=== PATIENT | male | born 1965 | race Caucasian/White ===

== ENCOUNTER 2024-04-29 15:15 | Outpatient (REF) | payer OTHER, SELFPAY ==
[2024-04-29 16:37] LABS: Alanine Aminotransferase 25 U/L (0-40); Albumin Level 4.4 g/dL (3.5-5.0); Alkaline Phosphatase 59 U/L (39-117); Anion Gap 16 (12-20); Aspartate Amino Transferase 25 U/L (5-37); Bilirubin Total 0.4 mg/dL (0.0-1.0); Blood Urea Nitrogen 17 mg/dL (9-16); Calcium 9.2 mg/dL (8.4-10.2); Carbon Dioxide 22 mmol/L (22-29); Chloride 111 mmol/L (96-108); Cholesterol 193 mg/dL (<200); Estimated Glomerular Filt Rate > 60; Glucose Random 81 mg/dL (60-115); HDL Cholesterol 63 mg/dL (>40); LDL Cholesterol Calculated 121 mg/dL (<100); Potassium 3.6 mmol/L (3.3-5.1); Sodium 145 mmol/L (135-145); Triglycerides 48 mg/dL (<150)
[2024-04-30 09:02] LABS: HIV AB/AG Nonreactive (Nonreactive); HIV Num 1 0.05 S/CO (0.00-0.99); ~HepC Num1 0.12 S/CO (0.00-0.79); ~Hepatitis C Antibody Nonreactive (Nonreactive)
== END 2024-04-29 15:16 | disposition home or self-care (01) ==
LOC: HO.HHCL 15:15
PROVIDERS: Visit Provider Nurse Practitioner Family
DX: Z00.00 Encounter for general adult medical examination without abnormal findings (principal)
CPT/HCPCS: 36415; 80053; 80061; 86803; 87389

== ENCOUNTER 2025-04-29 11:01 | Outpatient (REF) | payer OTHER, SELFPAY ==
--- OUTSIDE RECORDS SUMMARY | 2025-04-29 10:30 | XMS_ITS | Encounter Summary ---
Author Organization [employer] Address [address] [place] [address] [address] [place] [address] Care Team Providers Care Solar Installation Foreman Name Role Phone Alexandra Munoz Primary Care Provider [phone] Encounter Details Date Type Department Care Team ([facility] st Contact Info) Description 04/29/2025 10:30 AM EDT Office Visit [facility] [address] [place], [place] [phone] Alexandra Munoz FNP [address] [place] [address] Healthcare maintenance (Primary Dx) Social History Tobacco Use Types Packs/Day Years Used Date Smoking Tobacco: Never Passive Smoke Exposure: Never Smokeless Tobacco: Never Tobacco Cessation:Counseling Given: Not Answered Alcohol Use Standard Drinks/Week Comments Yes 12 (1 standard drink = 0.6 oz pu re alcohol) Alcohol Answer Date Recorded How often do you have a drink containing alcohol ? 4 04/29/2025 How many drinks containing a lcohol do you have on a typical day when you are drinking? 4 04/29/2025 How often do you have six or more drinks on one occasion? 0 04/29/2025 Depression Answer Date Recorded Patient Health Questionnaire-9 Score 0 04/29/2025 Patient Health Questionnaire-9 Score 0 04/29/2025 Last PHQ-9: Questionnaire Data Not on file 1 Housing Stability Answer Date Recorded What is your housing situation today? I have luis fernando zhao 04/29/[address] you li ve. Do you have problems with any of the following? None of the above 04/29/2024 Food Insecurity Answer Date Recorded Within the past 12 months, y ou worried that your food would run out before you got money to buy more: Never True 04/29/2024 Within the past 12 months,th e food you bought just didn't last and you didn't have enough money to get more: Never True 08/2023 Transportation Answer Date Recorded In the past 12 months, has l ack of transportation kept you from medical appts, meetings, work or from getting things needed for daily living? No 04/29/2024 Utilities Answer Date Recorded In the past 12 months, has t he electric, gas, oil or water company threatened to shut off services in your home? No 04/29/2024 Depression Answer Date Recorded Patient Health Questionnaire-2 Score 0 04/29/2025 Internet Access Answer Date Recorded Internet Access Q1 Yes 04/29/2024 Internet Access Q2 Not on file 04/29/2024 Sex and Gender Information Value Date Recorded Sex Assigned at Male 03/23/2024 10:51 AM EDT Legal Sex Male 10:50 AM EDT Gender Identity Male 03/23/2024 12:18 PM EDT Sexual Orientation Straight 03/23/2024 10 :51 AM EDT documented as of this encounter Last Filed Vital Signs Vital Sign Reading Time Taken Comments Blood Pressure 108/68 04/29/2025 10:33 AM EDT Pulse 65 04/29/2025 10:33 AM EDT Temperature 36.5 C (97.7 F) 04/29/2025 10:33 AM EDT Respiratory Rate 20 04/29/2025 10:33 AM EDT Oxygen Saturation 97% 04/29/2025 10:33 AM EDT Inhaled Oxygen Concentration - - Weight 70.3 kg (155 lb) 04/29/2025 10:33 AM EDT Height 173.1 cm (5' 8.16 ) 04/29/2025 10:33 AM E DT Body Mass Index 23.46 04/29/2025 10:33 AM EDT documented in this encounter Functional Status * Over the past 2 weeks, how often have you been bothered by any of the following problems? Question Answer Date of Assessment Author Patient Health Questionnaire-2 Score 0 04/29/2025 11:03 AM EDT Cee Almeida [place] * Little interest or pleasure in doing things Answer Date of Assessment Author Not at all 04/29/2025 11:03 AM Cee Fleming [place], [place] * Feeling down, depressed, or hopeless Answer Date of Assessment Author Not at all 04/29/2025 11:03 AM Cee Fleming [place], [place] * Trouble falling or staying asleep, or sleeping too much Answer Date of Assessment Author Not at all 04/29/2025 11:03 AM Cee Fleming [place], [place] * Feeling tired or having little energy Answer Date of Assessment Author Not at all 04/29/2025 11:03 AM Cee Fleming [place], [place] * Poor appetite or overeating Answer Date of Assessment Author Not at all 04/29/2025 11:03 AM Cee Fleming [place], [place] * Feeling bad about yourself - or that you are a failure or have let yourself or your family down Answer Date of Assessment Author Not at all 04/29/2025 11:03 AM Cee Fleming [place], [place] * Trouble concentrating on things, such as reading the newspaper or watching television Answer Date of Assessment Author Not at all 04/29/2025 11:03 AM Cee Fleming [place], [place] * Moving or speaking so slowly that other people could have noticed? Or the opposite - being so fidgety or restless that you have been moving around a lot more than usual. Answer Date of Assessment Author Not at all 04/29/2025 11:03 AM Cee Fleming [place], [place] * Thoughts that you would be better off or hurting yourself in some way Answer Date of Assessment Author Not at all 04/29/2025 11:03 AM Cee Fleming [place], [place] * Patient Health Questionnaire-9 Score Answer Date of Assessment Author 0 04/29/2025 11:03 AM Cee Fleming [place], [place] * Over the last 2 weeks, how often have you been bothered by any of the following problems? Question Answer Date of Assessment Author Feeling nervous, anxious, or on edge 0 04/29/2025 11:03 AM EDT Cee Eaton [place] Not being able to stop or control worrying 0 04/29/2025 11:03 AM EDT Cee Eaton [place] Worrying too much about different things 0 04/29/2025 11:03 AM EDT Cee Eaton [place] Trouble relaxing 0 04/29/2025 11:03 AM EDT Cee Eaton [place] Being so restless that it is hard to sit still 0 04/29/2025 11:03 AM EDT Cee Eaton [place] Becoming easily annoyed or irritable 0 04/29/2025 11:03 AM EDT Cee Eaton [place] Feeling afraid as if something awful might happen 0 04/29/2025 11:03 AM EDT Cee Cortez [place] SENG-7 Total Score 0 04/29/2025 11:03 AM EDT Cee Eaton [place] documented as of this encounter Plan of Treatment Upcoming Encounters Date Type Department Care Team (Late st Contact Info) Description 07/16/2025 2:00 PM EST Office Visit [facility] [address] [place] [address] TarkaMelody, OD [address] [place] [address] documented as of this encounter Procedures Procedure Name Priority Date/Time Associated Diagnosis Comments VITAMIN D,25-OH,TOTAL,IA Routine 04/29/2025 11:05 AM EDT Healthcare maintenance LIPID PANEL, STANDARD Routine 04/29/2025 11:05 AM EDT Healthcare maintenance COMPREHENSIVE METABOLIC PANEL Routine 04/29/2025 11:05 AM EDT Healthcare maintenance documented in this encounter Results * Comprehensive Metabolic Panel (04/29/2025 11:05 AM EDT) Sodium 143 135 - 145 mmol/L [facility] Potassium 4.6 3.3 - 5.1 mmol/L [facility] Chloride 108 96 - 108 mmol/L [facility] Carbon Dioxide 27 22 - 29 mmol/L [facility] Anion Gap 13 12 - 20 [facility] Urea Nitrogen (BUN) 15 9 - 16 mg/dL [facility] Creatinine, Serum 0.95 0.5 - 1.4 mg/dL [facility] Estimated Glomerular Filt Rate >60 [facility] Comment:Chronic Kidney Disea se: Estimated GFR < 60 mL/min/1.64t0Nsmebw Kidney Disease: Estimated GFR < 15 mL/min/1.73m2 Glucose 90 60 - 115 mg/dL [facility] Calcium 9.9 8.4 - 10.2 mg/dL [facility] Bilirubin, Total 0.7 0.0 - 1.0 mg/dL [facility] Aspartate Amino Transferase 31 5 - 37 U/L [facility] Alanine Aminotransferase 31 0 - 40 U/L [facility] Total Protein 7.5 6.5 - 8.0 g/dL [facility] Albumin Level 5.0 3.5 - 5.0 g/dL [facility] Alkaline Phosphatase 44 39 - 117 U/L [facility] Blood Venous blood specimen / Unknown 04/29/2025 11:05 AM EDT 04/29/2025 11:26 AM EDT us Alexandra Munoz PRESS WRITER LAB BLOOD ORDERABLES Final Res ult [facility] [address] [place] [phone] * Vitamin D, 25-Hydroxy, Total, Immunoassay (04/29/2025 11:05 AM EDT) Vitamin D 25-OH Total 100.6 >30 ng/mL [facility] Comment: Health Based Reference Values*< 20 ng/mL [id number] ng/mL Insufficient> 30 ng/mL Sufficient*Ese RANDALL N Engl J Med. 2007;357:266-280There is no well-established upper level of normal vitamin Dlevels. Some laboratories use 50 ng/mL as an upper limit ofnormal. However, toxicity is patient-dependent and may occurat any level. Careful correlation with the patient'spresentation is necessary and, if there is concern forvitamin D toxicity, treatment should be consideredirrespective of the serum level.Care must be taken in interpreting Vitamin D results fromdifferent laboratories and methodologies. Published datademonstrated that results from patients undergoinghemodialysis may show a negative bias when tested withvarious automated 25-OH vitamin D assays when compared toLC-MS/MS.When testing samples from patients whose predominant form ofVitamin D is Vitamin D2, such as patients receiving VitaminD2 supplementation, results that are subtherapeutic shouldbe confirmed with another method such as LC-MS/MS. Blood Venous blood specimen / Unknown 04/29/2025 11:05 AM EDT 04/29/2025 11:26 AM EDT us Alexandra Munoz [facility] LAB BLOOD ORDERABLES Final Res ult [facility] [address] [place], [place] [phone] * (ABNORMAL) Lipid Panel (04/29/2025 11:05 AM EDT) Triglycerides 60 <150 mg/dL [facility] Comment:Desirable Triglyceri de: less than 150 mg/dLBorderline High Triglyceride 150-199 mg/dLHigh Triglyceride: 200-499 mg/dLVery High Triglyceride: greater than or equal to 5OO mg/dL Cholesterol 216(H) <200 mg/dL [facility] Comment:Desirable Cholestero l: less than 200 mg/dLBorderline High Cholesterol: 200-239 mg/dLHigh Cholesterol: greater than 239 mg/dL LDL Cholesterol Calculated 133(H) <100 mg/dL [facility] Comment:Desirable LDL: less than 100 mg/dLNear Optimal/Above Optimal LDL: 110- 129 mg/dLBorderline High LDL: 130-159 mg/dLHigh LDL: 160-189 mg/dLVery High LDL: greater than or equal to 190 mg/dL HDL Cholesterol 71 >40 mg/dL [facility] Comment:Desirable HDL: great er than 40 mg/dL Note: This HDL assay may give artificially low results in patients with liver disease. Blood Venous blood specimen / Unknown 04/29/2025 11:05 AM EDT 04/29/2025 11:26 AM EDT Alexandra WOODSON LAB BLOOD ORDERABLES Final Res ult [facility] [address] [place], [place] [phone] documented in this encounter Visit Diagnoses Diagnosis Healthcare maintenance- Primary documented in this encounter Additional Health Concerns Assessment Noted Time PHQ-9 Depression Total Score: 0 04/29/20 25 11:03 AM EDT documented as of this encounter Care Teams Solar Installation Foreman Relationship Specialty Start Date End Date Alexandra Munoz FNP [address] [place] [address] PCP - General Family Medicine 04/29/24 documented as of this encounter
[2025-04-29 12:39] LABS: Alanine Aminotransferase 31 U/L (0-40); Albumin Level 5.0 g/dL (3.5-5.0); Alkaline Phosphatase 44 U/L (39-117); Anion Gap 13 (12-20); Aspartate Amino Transferase 31 U/L (5-37); Blood Urea Nitrogen 15 mg/dL (9-16); Calcium 9.9 mg/dL (8.4-10.2); Carbon Dioxide 27 mmol/L (22-29); Chloride 108 mmol/L (96-108); Cholesterol 216 mg/dL (<200); Estimated Glomerular Filt Rate > 60; HDL Cholesterol 71 mg/dL (>40); Potassium 4.6 mmol/L (3.3-5.1); Sodium 143 mmol/L (135-145); Total Protein 7.5 g/dL (6.5-8.0); Triglycerides 60 mg/dL (<150)
--- OUTSIDE RECORDS SUMMARY | 2025-04-29 12:58 | XMS_ITS | Clinical Summary ---
Author Organization [employer] Address [address] [place] [address] [address] [place] [address] Care Team Providers Care Production Sorter Name Role Phone Debora Munozupe [facility] Primary Care Provider [phone] Allergies Active Allergy Reactions Criticality Noted Date Comments Penicillins 05/19/2003 childhood reaction Medications fluticasone (Flonase) 50 MCG/ACT nasal sprayIndication s:Respiratory symptoms Administer 1 spray into each nostril Once per day. Shake gently. Before first use, prime pump. After use, clean tip and replace cap. 16 g 1 5 01/05/20 26 Active albuterol 108 (90 Base) MCG/ACT inhalerIndicati ons:Respiratory symptoms Inhale 2 puffs every 6 (six) hours if needed for wheezing. 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/25/2009 Overview (04/29/2025): Flat Feet Flat Feet Encounters Date Type Department Care Team Description 04/29/2025 10:30 AM EDT Office Visit [facility] [address] [place] [address] Alexandra Munoz FNP Healthcare maintenance (Primary Dx) 04/29/2025 Travel 04/23/2025 Travel 03/24/2025 Telephone [facility] [address] [place] [address] Alexandra Munoz FNP April Recall from Last 3 Months Immunizations Immunization Administration Dates Next Due Influenza, Unspecified 05/19/2003 Influenza, seasonal, injectable, preservative fr ee 04/29/2024 Pfizer Covid-19 Vaccine 12+ 04/29/2024 Td (adult), 5 Lf tetanus tox oid, preservative free, adsorbed 05/19/2003 Tdap 07/20/2022 Social History Tobacco Use Types Packs/Day Years [...] Orientation Straight 03/23/2024 10 :51 AM EDT Last Filed Vital Signs Vital Sign Reading [...] Mass Index 23.46 04/29/2025 10:33 AM EDT Plan of Treatment Upcoming Encounters Date Type Department Care Team (Late st Contact Info) Description 07/16/2025 2:00 PM EST Office Visit [facility] [address] [place] [address] TarkaMelody, OD [address] [place] [address] Health Maintenance Due Date Last Done Comments CT Colonography 1963 FIT DNA/Cologuard 1963 FIT 1963 FOBT 1963 Sigmoidoscopy 1963 Pneumococcal Vaccine: 50+ Years (1 of 1 - PCV) 2013 Zoster Vaccines (1 of 2) 2013 Influenza Vaccine (#1) 2025 04/29/2024, 2002 Disability Screening 01/04/2026 01/04/2025 Alcohol/Substance Use Screening 04/29/2026 04/29/2025 Depression Screening 04/29/2026 04/29/2025, 04/29/20 25 SDOH Screening 04/29/2026 04/29/2025 Tobacco Screening 04/29/2026 04/29/2025 Lipid Panel 04/29/2029 04/29/2025, 04/29/2024 DTaP/Tdap/Td Vaccines (2 - Td or Tdap) 07/20/2032 07/20/2022, 05/19/2003 Colonoscopy 02/09/2035 02/09/2025, 02/09/2025 Colorectal Cancer Screening 02/09/2035 RSV Patients and Patients Aged 60 years or older (1 - 1-dose 75+ series) 2038 COVID-19 Vaccine Completed 04/29/2024, , 01/18/2022, Additional history exists HIV Screening Completed 04/29/2024 Hepatitis C Screening Completed 04/29/2024 HIB Vaccines Aged Out No longer eligi ble based on patient's age to complete this topic HPV Vaccines Aged Out No longer eligi ble based on patient's age to complete this topic Hepatitis A Vaccines Aged Out No long er eligible based on patient's age to complete this topic Hepatitis B Vaccines Aged Out No long er eligible based on patient's age to complete this topic IPV Vaccines Aged Out No longer eligi ble based on patient's age to complete this topic Meningococcal B Vaccine Aged Out No l onger eligible based on patient's age to complete this topic Meningococcal Vaccine Aged Out No suhail remigio eligible based on patient's age to complete this topic RSV under 20 months Aged Out No longe r eligible based on patient's age to complete this topic Rotavirus Vaccines Aged Out No longer eligible based on patient's age to complete this topic Procedures Procedure Name Priority Date/Time Associated Diagnosis Comments COMPREHENSIVE METABOLIC PANEL Routine 04/29/2025 11:05 AM EDT Healthcare maintenance VITAMIN D,25-OH,TOTAL,IA Routine 04/29/2025 11:05 AM EDT Healthcare maintenance LIPID PANEL, STANDARD Routine 04/29/2025 11:05 AM EDT Healthcare maintenance HEPATITIS C AB W/REFL TO HCV RNA, QN, PCR Routine 04/29/2024 3:25 PM EDT Healthcare maintenance HIV 1/2 ANTIGEN/ANTIBODY, FOURTH GENERATION W/RFL Routine 04/29/2024 3:25 PM EDT Healthcare maintenance from Last 3 Months or Most Recently Relevant to Health Maintenance Results * Vitamin D, 25-Hydroxy, Total, Immunoassay (04/29/2025 11:05 AM EDT) Pathologist [facility] Vitamin D 25-OH Total 100.6 >30 ng/mL [facility] Comment: Health Based Reference Values*< 20 ng/mL Zjqlbjxsf42-75 ng/mL Insufficient> 30 ng/mL Sufficient*Ese PETERSON. N Engl J Med. 2007;357:266-280There is no [...] AM EDT 04/29/2025 11:26 AM EDT us Alexandrafranco Munoz METAL FURNITURE ASSEMBLY SUPERVISOR LAB BLOOD ORDERABLES Final Res ult [facility] [address] [place] [address] [phone] * (ABNORMAL) Lipid Panel (04/29/2025 11:05 AM EDT) Triglycerides 60 <150 mg/dL [facility] Comment:Desirable Triglyceri de: less than 150 mg/dLBorderline High Triglyceride 150-199 mg/dLHigh Triglyceride: 200-499 mg/dLVery High Triglyceride: greater than or equal to 5OO mg/dL Cholesterol 216(H) <200 mg/dL [facility] Comment:Desirable Cholestero l: less than 200 mg/dLBorderline High Cholesterol: 200-239 mg/dLHigh Cholesterol: greater than 239 mg/dL LDL Cholesterol Calculated 133(H) <100 mg/dL [facility] Comment:Desirable LDL: less than 100 mg/dLNear Optimal/Above Optimal LDL: 110- 129 mg/dLBorderline High LDL: 130-159 mg/dLHigh LDL: 160-189 mg/dLVery High LDL: greater than or equal to 190 mg/dL HDL Cholesterol 71 >40 mg/dL [facility] Comment:Desirable HDL: great er than 40 mg/dL Note: This HDL assay may give artificially low results in patients with liver disease. Blood Venous blood specimen / Unknown 04/29/2025 11:05 AM EDT 04/29/2025 11:26 AM EDT us Alexandra Munoz METAL FURNITURE ASSEMBLY SUPERVISOR LAB BLOOD ORDERABLES Final Res ult [facility] [address] [place] [address] [phone] * Comprehensive Metabolic Panel (04/29/2025 11:05 AM EDT) Sodium 143 135 - 145 mmol/L [facility] Potassium 4.6 3.3 - 5.1 mmol/L [facility] Chloride 108 96 - 108 mmol/L [facility] Carbon Dioxide 27 22 - 29 mmol/L [facility] Anion Gap 13 12 - 20 [facility] Urea Nitrogen (BUN) 15 9 - 16 mg/dL [facility] Creatinine, Serum 0.95 0.5 - 1.4 mg/dL [facility] Estimated Glomerular Filt Rate >60 [facility] Comment:Chronic Kidney Disea se: Estimated GFR < 60 mL/min/1.11b5Msvbhk Kidney Disease: Estimated GFR < 15 mL/min/1.73m2 Glucose 90 60 - 115 mg/dL [facility] Calcium 9.9 8.4 - 10.2 mg/dL [facility] Bilirubin, Total 0.7 0.0 - 1.0 mg/dL [facility] Aspartate Amino Transferase 31 5 - 37 U/L [facility] Alanine Aminotransferase 31 0 - 40 U/L [facility] Total Protein 7.5 6.5 - 8.0 g/dL [facility] Albumin Level 5.0 3.5 - 5.0 g/dL [facility] Alkaline Phosphatase 44 39 - 117 U/L [facility] Blood Venous blood specimen / Unknown 04/29/2025 11:05 AM EDT 04/29/2025 11:26 AM EDT [employer] [facility] LAB BLOOD ORDERABLES Final Res ult Performing Organization Address [facility]/ZIP Co de Phone Number [facility] [address] [place] [phone] * Hepatitis C Antibody with Reflex to HCV, RNA, Quantitative, Real-Time PCR (04/29/2024 3:25 PM EDT) Hepatitis C Antibody Nonreactive Nonreactive [facility] Comment:Antibodies to HCV no t detected; does not exclude early acuteHCV infection. Blood Venous blood specimen / Unknown 04/29/2024 3:25 PM EDT 04/29/2024 3:56 PM EDT AlexandraCreoptixP LAB BLOOD ORDERABLES Final Res ult [facility] [address] [place] [phone] * HIV-1/2 Antigen and Antibodies, Fourth Generation, with Reflexes (04/29/2024 3:25 PM EDT) HIV AB/AG Nonreactive Nonreactive [facility] Comment:HIV-1 p24 Ag and/or HIV-1/HIV-2 Ab not detected.A test result that is nonreactive does not exclude thepossibility of exposure to or infection with HIV-1 and/orHIV-2. Nonreactive results in this assay for individualswith prior exposure to HIV-1 and/or HIV-2 may be due toantigen and antibody levels that are below the limit ofdetection of this assay.The The [employer] HIV Ag/Ab Combo assay result andsupplemental assay results should be interpreted inconjunction with the patient's clinical presentation,history and other laboratory results. If the results areinconsistent with clinical evidence, additional testing issuggested to confirm the result. Blood Venous blood specimen / Unknown 04/29/2024 3:25 PM EDT 04/29/2024 3:56 PM EDT Alexandra Munoz [facility] LAB BLOOD ORDERABLES Final Res ult Performing Organization Address [facility] Co de Phone Number [facility] [address] [place] [address] [phone] from Last 3 Months or Most Recently Relevant to Health Maintenance Insurance [facility] Care Teams Production Sorter Relationship Specialty Start Date End Date Alexandra Munoz FNP [address] [place] [address] PCP - General Family Medicine 04/29/24
--- OUTSIDE RECORDS SUMMARY | 2025-04-29 12:58 | XMS_ITS | Clinical Summary ---
Author Organization [facility] Address [address] [place] [address] [place] [address] Phone Care Team Providers Care Chute Greaser Name Role Phone Alexandra Munoz [facility] Primary Care Provider + Allergies Active Allergy Reactions Criticality Noted Date Comments Penicillins 05/19/2003 childhood reaction Medications azithromycin (ZITHROMAX) 250 MG tablet Take 250 mg by mouth daily. 08/26/2024 Active cefpodoxime (VANTIN) 200 MG tablet Take 200 mg by mouth 2 (two) times a day. 08/26/2024 Active Active Problems No known active problems Encounters Date Type Department Care Team Description 02/09/2025 11:15 AM EDT - 02/09/2025 11:30 AM EDT Surgery [facility] Admitting Dept Virtual Department [address] [place] [address] Zeferino Crandall MD COLONOSCOPY 02/09/2025 11:02 AM EDT Anesthesia Event [facility] Admitting [facility] Virtual Department [address] [place] [phone] Glory Malagon MD 02/09/2025 10:00 AM EDT - 02/09/2025 11:47 AM EDT Hospital Encounter [facility] Admitting [facility] Virtual Department [address] [place] [phone] Zeferino Crandall MD Discharge Disposition: Home or Self Care 02/09/2025 Procedure Pass [facility] Admitting Dept Virtual Department [address] [place] [phone] 02/04/2025 2:15 PM EDT Pre-Admission Testing Pre Procedure Evaluation [address] [place] [address] Zeferino Crandall MD from Last 3 Months Immunizations Immunization Administration Dates Next Due Tdap 07/20/2022 Social History Tobacco Use Types Packs/Day Years Used Date Smoking Tobacco: Never Smokeless Tobacco: Never Tobacco Cessation:Counseling Given: Not Answered Alcohol Use Standard Drinks/Week Comments Yes 0 (1 standard drink = 0.6 oz pure alcohol) glass of wine with dinner; occasional cocktails on weekends Education Answer Date Recorded Are you interested in more education? Not on meli e 11/24/2022 Are you concerned about learning? Not on file 11/24/2022 No 11/24/2022 No 11/24/2022 Digital Access Answer Date Recorded No 12/23/2022 No 12/23/2022 Reliable internet access at home? Not on file 12/23/2022 Device with a working camera? Not on file Intimate Partner Violence Answer Date R ecorded Are you denied basic needs s uch as food, clothing, or medical care? No 02/09/2025 In the past 12 months have y ou been in a relationship with a person who hurts, threatens, or tries to control you? No 02/09/2025 Are you denied basic needs s uch as food, clothing, or medical care? No 02/09/2025 In the past 12 months have y ou been in a relationship with a person who hurts, threatens, or tries to control you? No 02/09/2025 Sex and Gender Information Value Date Recorded Sex Assigned at Not on file Legal Sex Male 8:19 PM EST Gender Identity Not on file Sexual Orientation Not on file Last Filed Vital Signs Vital Sign Reading Time Taken Comments Blood Pressure 113/73 02/09/2025 11:35 AM EDT Pulse 55 02/09/2025 11:35 AM EDT Temperature 36.2 C (97.1 F) 02/09/2025 11:20 AM EDT Respiratory Rate 18 02/09/2025 11:35 AM EDT Oxygen Saturation 95% 02/09/2025 11:35 AM EDT Inhaled Oxygen Concentration - - Weight 66.7 kg (147 lb) 02/05/2025 9:33 AM EDT Height 175.3 cm (5' 9 ) 02/05/2025 9:33 AM EDT Body Mass Index 21.71 02/05/2025 9:33 AM EDT Plan of Treatment Health Maintenance Due Date Last Done Comments DEPRESSION SCREENING 1975 HEPATITIS C SCREENING 1981 HIV ONE-TIME SCREENING (18-65 YEARS) 1981 COLOGUARD 2008 FIT TEST 2008 FOBT 2008 SIGMOIDOSCOPY 2008 VIRTUAL COLONOSCOPY 2008 PNEUMOCOCCAL VACCINES (50+ years) (1 of 1 - PCV) 2013 ZOSTER VACCINES (1 of 2) 2013 INFLUENZA VACCINE (#1) 2025 04/29/2024 LIPID PANEL 04/29/2029 04/29/2024, 07/27/2016 Adult Td,Tdap Booster 07/20/2032 07/20/2022 COLONOSCOPY 02/09/2035 02/09/2025 COLORECTAL CANCER SCREENING 02/09/2035 RSV VACCINE (1 - 1-dose 75+ series) 2038 COVID-19 VACCINE Completed 04/29/2024, , 01/18/2022, Additional history exists SMOKING STATUS SCREENING (Once After 26 Yrs) Completed 02/09/2025 HEPATITIS A VACCINES Aged Out No long er eligible based on patient's age to complete this topic HIB VACCINES Aged Out No longer eligi ble based on patient's age to complete this topic MENINGOCOCCAL VACCINES (ACWY) Aged Out No longer eligible based on patient's age to complete this topic MENINGOCOCCAL VACCINES (B) Aged Out N o longer eligible based on patient's age to complete this topic Medical Devices Not on file Procedures Procedure Name Priority Date/Time Associated Diagnosis Comments UT COLSC FLX W/RMVL OF TUMOR POLYP LESION SNARE TQ 02/09/2025 11:02 AM EDT Colon cancer screening Special Needs direct UT COLONOSCOPY W/BIOPSY SINGLE/MULTIPLE 02/09/2025 11:02 AM EDT Colon cancer screening Special Needs direct UT COLONOSCOPY FLX DX W/COLLJ SPEC WHEN PFRMD 02/09/2025 11:02 AM EDT Colon cancer screening Special Needs direct ENDOSCOPY, COLON 02/09/2025 10:5 9 AM EDT from Last 3 Months Results * ENDOSCOPY, COLON (02/09/2025 10:59 AM EDT) Narrative Transcriptions Zeferino Crandall MD - 02/09/2025 10:59 AM EDT [facility] Patient Name: Beto Cochran Attending MD:: ZEFERINO CRANDALL MD, , Procedure Date: 02/09/2025 10:59 AM Date of : 1965 Age: 59 Admit Type: Outpatient Gender: Male Room: [place] [address] Referring MD: ALEXANDRA ERNANDEZ Exam Type: Colonoscopy Indications: Screening for colorectal malignant neoplasm Medications: Monitored Anesthesia Care Procedure: Informed consent was obtained from the patientafter discussion of the indications, limitations, alternatives, benefits, and risks of the procedure. Risks specifically discussed include but are not limited to medication reactions, missed lesions, bleeding, perforation, or the need for emergent surgery. Throughout the procedure, the patient's blood pressure, pulse, end-tidal CO2, and oxygensaturations were monitored continuously. The Olympus adult variable colonoscope [id number] #7 was introduced through the anus and advanced to the cecum, identified by appendiceal orifice andileocecal valve. The colonoscopy was performed without difficulty. The patient tolerated the procedurewell. The quality of the bowel preparation was excellent. The quality of the bowel preparation was evaluated using the BBPS (Flint Bowel Preparation Scale)with scores of: Right Colon = 3, Transverse Colon = 3and Left Colon = 3 (entire mucosa seen well with no residual staining, small fragments of stool oropaque liquid). The total BBPS score equals 9. Anatomical landmarks were photographed. Complications: No immediate complications. Estimated blood loss:None. Findings: The perianal and digital rectal examinations were normal. Internal hemorrhoids were found duringretroflexion. The hemorrhoids were mild. The exam was otherwise normal throughout theexamined colon. Impression: - Internal hemorrhoids. - No specimens collected. Recommendation: - Discharge patient to home. - Repeat colonoscopy in 10 years for screening purposes. ZEFERINO CRANDALL MD, 02/09/2025 11:18:55 AM This report has been signed electronically. Number of Addenda: 0 Note Initiated On: 02/09/2025 10:59 AM Procedure Code(s): --- Professional --- 75488, Colonoscopy, flexible; diagnostic, including collection of specimen(s) by brushing or washing, when performed (separateprocedure) --- Technical --- 02214, Colonoscopy, flexible; diagnostic, including collection of specimen(s) by brushing or washing, when performed (separateprocedure) Diagnosis Code(s): --- Professional --- Z12.11, Encounter for screening for malignantneoplasm of colon K64.8, Other hemorrhoids --- Technical --- Z12.11, Encounter for screening for malignantneoplasm of colon K64.8, Other hemorrhoids CPT copyright 2021 [employer]. All rights reserved. The codes documented in this report are preliminary and upon chemistry technologist reviewmay be revised to meet current compliance requirements. Procedure Date: 02/09/2025 10:59:[address] [place] [address] Alexandrafranco Joshimissy [facility] GI PROCEDURE ORDERABLES Final Result from Last 3 Months Insurance WELLSENSE NON NSPG PCP CLARITY COMMERCIAL WELLSENSE NON NSPG PCP CLARITY COMMERCIAL WELLSENSE NON NSPG PCP CLARITY COMMERCIAL WELLSENSE NON NSPG PCP CLARITY COMMERCIAL WELLSENSE NON NSPG PCP CLARITY COMMERCIAL WELLSENSE NON NSPG PCP CLARITY COMMERCIAL Care Teams Chute Greaser Relationship Specialty Start Date End Date Alexandra Munoz FNP [address] [place] [address] PCP - General Nurse Practitioner 11/20/24 Additional Source Comments The information contained in this document represents components of the legal health record. It is not the complete legal health record.[facility]
--- OUTSIDE RECORDS SUMMARY | 2025-04-29 12:58 | XMS_ITS | Encounter Summary ---
Author Organization [facility] Address [address] [place] [address] [place] [phone] Phone Care Team Providers Care Custom Miller Name Role Phone Bettina Dawkins MD, PhD Primary Care Provider [phone] Unknown, Unknown Primary Care Provider Alexandra Hugo Primary Care Provider + Encounter Details Date Type Department Care Team (Late st Contact Info) Description 07/20/2022 Procedure Pass [facility] Imaging, [address], [address] [place] [address] Social History Tobacco Use Types Packs/Day Years Used Date Smoking Tobacco: Never Assessed Sex and Gender Information Value Date Recorded Sex Assigned at Not on file Legal Sex Male 8:19 PM EST Gender Identity Not on file Sexual Orientation Not on file documented as of this encounter Plan of Treatment Not on file documented as of this encounter Visit Diagnoses Not on filedocumented in this encounter Care Teams Custom Miller Relationship Specialty Start Date End Date Bettina Dawkins MD, PhD [email or web address] PCP - General 07/20/22 01/09/23 Unknown, Unknown, PCP - General 01/10/23 11/19/24 Alexandra Munoz FNP [address] [place] [phone] PCP - General Nurse Practitioner 11/20/24 documented as of this encounter Additional Source Comments The information contained in this document represents components of the legal health record. It is not the complete legal health record.[facility]
--- OUTSIDE RECORDS SUMMARY | 2025-04-29 12:58 | XMS_ITS | Encounter Summary ---
Author Organization [employer] Address [address] [place] [address] Care Team Providers Care Mobile Application Development Lead Name Role Phone Debora Munozupe [facility] Primary Care Provider [phone] Encounter Details Date Type Department Care Team (Latest Contact Info) Description 04/29/2025 Travel Social History Tobacco Use Types Packs/Day Years Used Date Smoking Tobacco: Never Passive Smoke Exposure: Never Smokeless Tobacco: Never Alcohol Use Standard Drinks/Week Comments Yes 12 [...] AM EDT documented as of this encounter Functional Status * Over the past 2 weeks, how often have you been bothered by any of the following problems? Question Answer Date of Assessment Author Patient Health Questionnaire-2 Score 0 04/29/2025 11:03 AM EDT Cee Almeida [place] * Little interest or pleasure in doing things Answer Date of Assessment Author Not at all 04/29/2025 11:03 AM EDT Cee Colón [place], [place] * Feeling down, depressed, or hopeless Answer Date of Assessment Author Not at all 04/29/2025 11:03 AM EDT Cee Colón [place], [place] * Trouble falling or staying asleep, or sleeping too much Answer Date of Assessment Author Not at all 04/29/2025 11:03 AM EDCee Zamora [place], [place] * Feeling tired or having little energy Answer Date of Assessment Author Not at all 04/29/2025 11:03 AM EDT Cee Colón [place], [place] * Poor appetite or overeating Answer Date of Assessment Author Not at all 04/29/2025 11:03 AM EDT Cee Colón [place], [place] * Feeling bad about yourself - or that you are a failure or have let yourself or your family down Answer Date of Assessment Author Not at all 04/29/2025 11:03 AM EDT RaCee gomez [place], [place] * Trouble concentrating on things, such as reading the newspaper or watching television Answer Date of Assessment Author Not at all 04/29/2025 11:03 AM EDT Cee Colón [place], [place] * Moving or speaking so slowly that other people could have noticed? Or the opposite - being so fidgety or restless that you have been moving around a lot more than usual. Answer Date of Assessment Author Not at all 04/29/2025 11:03 AM EDT Cee Colón [place], [place] * Thoughts that you would be better off or hurting yourself in some way Answer Date of Assessment Author Not at all 04/29/2025 11:03 AM EDT Cee Colón [place], [place] * Patient Health Questionnaire-9 Score Answer Date of Assessment Author 0 04/29/2025 11:03 AM EDT Cee Colón [place], [place] * Over the last 2 [...] annoyed or irritable 0 04/29/2025 11:03 AM PRITIT Cee Eaton [place] Feeling afraid as if something awful might happen 0 04/29/2025 11:03 AM EDT Cee Cortez [place] SENG-7 Total Score 0 04/29/2025 11:03 AM EDT Cee Eaton [place] documented as of this encounter Plan of Treatment Upcoming Encounters Date Type Department Care Team (Late st Contact Info) Description 07/16/2025 2:00 PM EST Office Visit [facility] [address] [place], [place] [phone] Melody Orourke, OD [address] [place] [address] documented as of this encounter Visit Diagnoses Not on filedocumented in this encounter Additional Health Concerns Assessment Noted Time PHQ-9 Depression Total Score: 0 04/29/20 25 11:03 AM EDT documented as of this encounter Care Teams Mobile Application Development Lead Relationship Specialty Start Date End Date Alexandra Munoz FNP [address] [place], [place] [phone] PCP - General Family Medicine 04/29/24 documented as of this encounter
--- OUTSIDE RECORDS SUMMARY | 2025-04-29 12:58 | XMS_ITS | Encounter Summary ---
Author Organization [facility] Address [address] [place] [address] [place] [phone] Phone Care Team Providers Care Manager Solar Name Role Phone Bettina Dawkins MD, PhD Primary Care Provider [phone] Unknown, Unknown Primary Care Provider Alexandra Hugo Primary Care Provider + Encounter Details Date Type Department Care Team (Late st Contact Info) Description 07/20/2022 Procedure Pass [facility] Emergency Imaging, [address] [place] [address] Social History Tobacco Use Types Packs/Day Years [...] on filedocumented in this encounter Care Teams Manager Solar Relationship Specialty Start Date End Date Bettina Dawkins MD, PhD [email or web address] PCP - General 07/20/22 01/09/23 Unknown, Unknown, PCP - General 01/10/23 11/19/24 Alexandra Munoz FNP [address] [place] [phone] PCP - General Nurse Practitioner 11/20/24 documented as of this encounter Additional Source Comments The information contained in this document represents components of the legal health record. It is not the complete legal health record.[facility]
--- OUTSIDE RECORDS SUMMARY | 2025-04-29 12:58 | XMS_ITS | Encounter Summary ---
Author Organization [facility] Address [address] [facility] [address] [place] [address] Phone Care Team Providers Care Channel Specialist Name Role Phone AdibobbyAlexandra mcdonald [facility] Primary Care Provider + Encounter Details Date Type Department Care Team ([facility] st Contact Info) Description 02/09/2025 Procedure Pass [facility]oscopy Admitting Dept Virtual Department [address] [place] [address] Social History Tobacco Use Types Packs/Day Years Used Date Smoking Tobacco: Never Smokeless Tobacco: Never Alcohol Use Standard Drinks/Week Comments Yes 0 [...] on filedocumented in this encounter Care Teams Channel Specialist Relationship Specialty Start Date End Date Alexandra Munoz FNP [address] [place] [phone] PCP - General Nurse Practitioner 11/20/24 documented as of this encounter Additional Source Comments The information contained in this document represents components of the legal health record. It is not the complete legal health record.[facility]
== END 2025-04-29 11:02 | disposition home or self-care (01) ==
LOC: HO.HHCL 11:01
PROVIDERS: PCP Nurse Practitioner Family; Visit Provider Nurse Practitioner Family
DX: Z00.00 Encounter for general adult medical examination without abnormal findings (principal)
CPT/HCPCS: 36415; 80053; 80061; 82306